=== PATIENT | male | born 1940 | race Hispanic/Latino ===

== ENCOUNTER 2017-03-07 06:34 | Day surgery (SDC) | payer MEDICARE, OTHER ==
[2017-03-07] MEDS ORDERED: HEPARIN/NS 5000 UNIT/500ML(CATH LAB) 1,000 ML IR ONE (08:21)
[2017-03-07] MEDS ORDERED: XYLOCAINE 2% INFILTRATI ONE (08:22)
[2017-03-07] MEDS ORDERED: HEPARIN/NS 5000 UNIT/500ML(CATH LAB) 500 ML IR ONE (08:56)
[2017-03-07] MEDS ORDERED: HALFPRIN EC PO ONE (09:00)
[2017-03-07] MEDS ORDERED: NACL 0.9% 500 ML 500 ML IV SCH (09:00)
[2017-03-07] MEDS: VERSED ONE ×2 (09:24→10:08)
[2017-03-07] MEDS: SUBLIMAZE ONE ×2 (09:24→10:21)
[2017-03-07] MEDS ORDERED: APRESOLINE ONE (09:52)
[2017-03-07] MEDS ORDERED: LASIX ONE (09:53)
[2017-03-07] MEDS ORDERED: NITROSTAT SL ONE (10:14)
--- NOTE | 2017-03-07 10:27 | Short Stay Summary ---
Short Stay Documentation Date of service: 03/07/17 - History H&P: obtained from office - Allergies and Medications Current Medications: Allergies baclofen Allergy (Verified 04/03/16 08:59) Unknown levofloxacin [From Levaquin] Adverse Reaction (Verified 10/20/15 06:47) Vomiting Home Medications Medication Instructions Recorded Confirmed Last Taken Type Alfuzosin HCl [Alfuzosin HCl ER] 10 mg PO DAILY 03/08/14 03/07/17 03/04/17 History Aspirin [Aspirin BABY CHEW TAB] 81 mg PO QDAY 03/08/14 03/07/17 03/07/17 History Furosemide 20 mg PO DAILY 03/08/14 03/07/17 03/04/17 History Losartan Potassium 50 mg PO BID 03/08/14 03/07/17 03/07/17 History Metoprolol Tartrate 50 mg PO TID 03/08/14 03/07/17 03/07/17 History Simvastatin [Zocor TAB] 40 mg PO QHS 03/08/14 03/07/17 03/04/17 History HYDROcodone/ACETAMINOPHEN 1 tab PO TID PRN 10/20/15 03/07/17 03/04/17 History [HYDROcodone-Acetaminophn 10-325] Metformin HCl 1,000 mg PO BID 10/20/15 03/07/17 03/04/17 History Oxazepam [Serax] 10 mg PO QHS PRN 10/20/15 03/07/17 03/04/17 History traZODone [Desyrel] 100 mg PO QHS PRN 10/20/15 03/07/17 03/07/17 History Apixaban [Eliquis] 5 mg PO BID 04/03/16 03/07/17 03/06/17 History Omeprazole 40 mg PO DAILY 04/03/16 03/07/17 03/04/17 History Allopurinol [Zyloprim] 300 mg PO QDAY 03/07/17 03/07/17 03/04/17 History HYDROcodone/APAP 10-325 [[place] 1 each PO Q8HR PRN 03/07/17 03/07/17 03/04/17 History 10/325] Isosorbide Dinitrate 30 mg PO BID 03/07/17 03/07/17 03/04/17 History Pregabalin [Lyrica] 75 mg PO BID 03/07/17 03/07/17 03/04/17 History Active Medications Sodium Chloride (Nacl 0.9% 500 Ml) 500 mls @ 50 mls/hr IV DIRECT KENYON Stop: 03/07/17 18:59 - Brief post op/procedure progress note Date of procedure: 03/07/17 Pre-op diagnosis: sob Post-op diagnosis: same Procedure: see report Anesthesia: local Estimated blood loss: none Pathology: none - Disposition Condition at discharge: Good Disposition: DC-01 TO HOME OR SELFCARE - Discharge Diagnoses (1) Pulmonary HTN Status: Chronic (2) SOB (shortness of breath) on exertion Status: Acute (3) Atrial flutter Status: Chronic Qualifiers: Atrial flutter type: atypical Qualified Code(s): I48.4 - Atypical atrial flutter (4) Aortic stenosis Status: Chronic Qualifiers: Cardiac valve disease etiology: C (5) CAD (coronary artery disease) Status: Chronic Qualifiers: Coronary Disease-Associated Artery/Lesion type: [place] artery [place] vs. transplanted heart: [place] heart Associated angina: without angina Qualified Code(s): I25.10 - Atherosclerotic heart disease of [place] coronary artery without angina pectoris (6) Dextrocardia Status: Chronic (7) Diabetes mellitus Status: Chronic Qualifiers: Diabetes mellitus type: type 1 Diabetes mellitus complication status: with circulatory complication Diabetes mellitus complication detail: with other circulatory complications Diabetic retinopathy severity: D Proliferative retinopathy type: P Diabetes mellitus macular edema: D Diabetes mellitus rodent exterminator insulin use: D Laterality: L Chronic kidney disease stage: C Qualified Code(s): E10.59 - Type 1 diabetes mellitus with other circulatory complications (8) HTN (hypertension) Status: Chronic Qualifiers: Hypertension type: essential hypertension (9) Morbid obesity Status: Chronic (10) Sleep apnea in adult Status: Chronic Short Stay Discharge Plan Activity: advance as tolerated Diet: low fat, low cholesterol, low salt Special Instructions: hold Metformin (for two days) Follow up with: SAMMIE CLINE MD [Primary Care Provider] - 7 Days
--- NOTE | 2017-03-07 10:58 | Cardiac Catherization Report ---
LEFT AND RIGHT HEART CATHETERIZATION CLINICAL INFORMATION: This is a 76-year-old gentleman with morbid obesity, pulmonary hypertension and paroxysmal atrial fib, known coronary artery disease with dextrocardia with PCI to LAD in 2007, had an episode of chest pain, relieved with nitroglycerin and with recurrent shortness of breath with minimal exertion, so left and right heart catheterization was performed of the right common femoral artery and right common femoral vein. Sterile technique, local anesthesia, 6-Indonesian sheath placed in common femoral artery and 8-Indonesian sheath placed in the common femoral vein. PROCEDURE FINDINGS: Right heart catheterization was done, which showed a wedge of 22 mmHg, PA was 61/13 with an average of 34 mmHg, PA was 64/24, RA was average of 18 mmHg. There was no step up or step down on saturations. PVR was 130, SVR was 1169, cardiac output was 7.73 and cardiac index at 3.51 and a left system engaged with JR4 catheter. Left main is large and patent. LAD proximal stent patent with mild luminal irregularities. Rest LAD is a medium caliber vessel is patent with diagonal 1 and diagonal 2 small to medium caliber vessel that is patent. Circumflex is a large caliber vessel that is patent. OM1 and OM2 nfbih-yb-jldela caliber vessels that are patent. RCA is a large dominant vessel is patent from proximally and distally with moderate tortuosity. PDA and PLV are medium caliber vessels that are patent, moderate tortuosity. LV gram done in ARABIC and BROWNLEE view shows normal LV function with elevated LVEDP of 30 mmHg. The patient has mild aortic stenosis with an LV of 214 and aortic is 201/87, about 15-20 mm [id number]-tu-rqzx gradient noted. 5-Indonesian catheters were taken over the guidewire. Both sheaths were taken and manual pressure held. No hematoma. No bleeding. SUMMARY: 1. Left main patent, LAD stent patent, circ patent, RCA patent with moderate tortuosity of vessels. 2. Mild aortic stenosis with mildly elevated left end-diastolic and the patient had right heart catheterization that revealed adnvoaeu-lp-[id number] pulmonary hypertension. PA was 64 mmHg, RV was 62 mmHg, RA was 18, wedge was 22 mmHg. Cardiac output 7.73, cardiac index 3.51. 3. Increase Lasix to 40 mg daily. The patient referred for pulmonary hypertension. [facility]# [id number] JENNA/LIGIA
[2017-03-07] MEDS ORDERED: PERCOCET 5/325 ONE (13:20)
[2017-03-07] MEDS ORDERED: NORCO 5/325 PO ONE (13:21)
[2017-03-07 15:09] VITALS: BP 180/80
== END 2017-03-07 15:40 | disposition home or self-care (01) ==
LOC: CATHLABREC 06:34
PROVIDERS: ATTEND Internal Medicine
DX: I70.0 Atherosclerosis of aorta (principal); I25.10 Atherosclerotic heart disease of native coronary artery without angina pectoris; I27.2 Other secondary pulmonary hypertension; I48.0 Paroxysmal atrial fibrillation; I48.4 Atypical atrial flutter; E11.9 Type 2 diabetes mellitus without complications; E78.5 Hyperlipidemia, unspecified; I11.0 Hypertensive heart disease with heart failure; I50.32 Chronic diastolic (congestive) heart failure; E66.01 Morbid (severe) obesity due to excess calories; Z68.33 Body mass index [BMI] 33.0-33.9, adult; Z88.8 Allergy status to other drugs, medicaments and biological substances; Z91.018 Allergy to other foods; Z79.84 Long term (current) use of oral hypoglycemic drugs; Z79.82 Long term (current) use of aspirin; Z79.899 Other long term (current) drug therapy; Z95.5 Presence of coronary angioplasty implant and graft; Z86.79 Personal history of other diseases of the circulatory system; Z98.890 Other specified postprocedural states; Z87.891 Personal history of nicotine dependence
CPT/HCPCS: 82962; 93005; 93010; 93460; C1769; C1894; J0360; J1644; J1940; J2250; J3010; J7040; Q9967

== ENCOUNTER 2019-07-16 06:13 | Day surgery (SDC) | payer MEDICARE ==
[2019-07-16] MEDS ORDERED: SODIUM CHLORIDE 0.9% 500 ML 500 ML ONE (06:38)
[2019-07-16] MEDS ORDERED: ASPIRIN EC 325 MG TAB PO ONE (06:38)
[2019-07-16] MEDS ORDERED: ASPIRIN EC 325 MG TAB PO NR (06:45)
[2019-07-16] MEDS ORDERED: SODIUM CHLORIDE 0.9% 500 ML 500 ML IV SCH (07:00)
[2019-07-16 07:14] LABS: Basophils % (Auto) 0.3 % (0.0-1.8); Eosinophils # (Auto) 0.3 K/mm3 (0.0-0.4); Eosinophils % (Auto) 4.2 % (0.0-4.3); Hematocrit 34.5 % (35.5-45.6); Hemoglobin 11.5 gm/dl (11.8-15.2); Lymphocytes # (Auto) 1.7 K/mm3 (1.2-5.4); Lymphocytes % (Auto) 28.2 % (13.4-35.0); Mean Corpuscular HGB Conc 33 % (32-34); Mean Corpuscular Volume 89 fl (84-94); Monocytes # (Auto) 0.5 K/mm3 (0.0-0.8); Monocytes % (Auto) 8.2 % (0.0-7.3); Platelet Count 202 K/mm3 (140-440); Red Blood Count 3.88 M/mm3 (3.65-5.03); Red Cell Distribution Width 15.6 % (13.2-15.2)
[2019-07-16 07:23] LABS: INR 0.98 (0.87-1.13)
[2019-07-16 07:24] LABS: Partial Thromboplastin Time 27.5 Sec. (24.2-36.6)
[2019-07-16 07:26] LABS: BUN/Creatinine Ratio 19; Blood Urea Nitrogen 15 mg/dL (9-20); Hemolysis Index 6
[2019-07-16] MEDS ORDERED: HEPARIN/NS 5000 UNIT/500ML 1,000 ML IR ONE (08:35)
[2019-07-16] MEDS ORDERED: LIDOCAINE (2%) 20 MG/1 ML VIAL 20 ML MDV INFILTRATI ONE (08:36)
[2019-07-16] MEDS: fentaNYL 100 MCG/2 ML INJ ONE ×3 (09:04→09:35)
[2019-07-16] MEDS: HEPARIN 10,000 UNITS/10 ML VIAL ONE ×2 (09:05→09:14)
[2019-07-16] MEDS: VERAPAMIL 5 MG/2 ML INJ ONE ×2 (09:05→09:14)
[2019-07-16] MEDS: MIDAZOLAM 2 MG/2 ML INJ ONE ×2 (09:05→09:10)
[2019-07-16] MEDS: NITROGLYCERIN SYRINGE 3 ML ONE ×2 (09:06→09:14)
[2019-07-16] MEDS ORDERED: hydrALAZINE 20 MG/1 ML INJ ONE (09:16)
[2019-07-16] MEDS ORDERED: HEPARIN/NS 5000 UNIT/500ML 500 ML IR ONE (09:57)
[2019-07-16] MEDS ORDERED: traMADol 50 MG TAB PO PRN (10:38)
--- NOTE | 2019-07-16 10:41 | Short Stay Summary ---
Short Stay Documentation Date of service: 07/16/19 - History H&P: obtained from office - Allergies and Medications Current Medications: Allergies baclofen Allergy (Verified 04/03/16 08:59) Unknown levofloxacin [From Levaquin] Adverse Reaction (Verified 10/20/15 06:47) Vomiting Home Medications Medication Instructions Recorded Confirmed Last Taken Type Alfuzosin HCl [Alfuzosin HCl ER] 10 mg PO DAILY 03/08/14 07/16/19 07/15/19 History Aspirin [Aspirin BABY CHEW TAB] 81 mg PO QDAY 03/08/14 07/16/19 07/15/19 History Furosemide 40 mg PO DAILY 03/08/14 07/16/19 2 Days Ago History ~07/14/19 Losartan Potassium 50 mg PO BID 03/08/14 07/16/19 07/16/19 05:30 History Metoprolol Tartrate 50 mg PO BID 03/08/14 07/16/19 07/16/19 05:30 History Simvastatin (Nf) [Zocor TAB] 40 mg PO QHS 03/08/14 07/16/19 07/15/19 History Metformin HCl 1,000 mg PO BID 10/20/15 07/16/19 2 Days Ago History ~07/14/19 traZODone [Desyrel] 100 mg PO QHS PRN 10/20/15 07/16/19 07/15/19 History Apixaban [Eliquis] 5 mg PO BID 04/03/16 07/16/19 4 Days Ago History ~07/12/19 Omeprazole 40 mg PO DAILY 04/03/16 07/16/19 07/15/19 History Allopurinol [Zyloprim] 300 mg PO QDAY 03/07/17 07/16/19 07/15/19 History HYDROcodone/APAP 10-325 [[place] 1 each PO Q8HR PRN 03/07/17 07/16/19 07/15/19 History 10-325 mg TAB] Isosorbide Dinitrate 30 mg PO BID 03/07/17 07/16/19 07/15/19 History Pregabalin 75 mg PO BID 03/07/17 07/16/19 03/04/17 History Nitroglycerin [Nitrostat] 0.4 mg SL Q5M PRN 07/16/19 07/16/19 Unknown History hydrALAZINE [Apresoline] 50 mg PO DAILY 07/16/19 07/16/19 07/16/19 05:30 History Active Medications Sodium Chloride (Nacl 0.9% 500 Ml) 500 mls @ 50 mls/hr IV DIRECT KENYON Stop: 07/16/19 16:59 Last Admin: 07/16/19 07:18 Dose: 50 mls/hr Documented by: - Brief post op/procedure progress note Date of procedure: 07/16/19 Pre-op diagnosis: as Post-op diagnosis: same Procedure: see report Anesthesia: local Estimated blood loss: none Pathology: none - Disposition Condition at discharge: Good Disposition: DC-01 TO HOME OR SELFCARE - Discharge Diagnoses (1) SOB (shortness of breath) on exertion Status: Chronic (2) Aortic stenosis Status: Chronic Qualifiers: Cardiac valve disease etiology: nonrheumatic (3) CAD (coronary artery disease) Status: Chronic Qualifiers: Coronary Disease-Associated Artery/Lesion type: [place] artery Associated angina: with stable angina (4) Dextrocardia Status: Chronic (5) Diabetes mellitus Status: Chronic Qualifiers: Diabetes mellitus type: type 2 Diabetes mellitus complication status: without complication (6) HTN (hypertension) Status: Chronic Qualifiers: Hypertension type: essential hypertension (7) History of PTCA Status: Chronic (8) Hyperlipemia, mixed Status: Chronic (9) Morbid obesity Status: Chronic Short Stay Discharge Plan Activity: advance as tolerated Diet: low cholesterol, low salt, diabetic Wound: keep clean and dry Special Instructions: hold Metformin (for 48 hours) Follow up with: SAMMIE CLINE MD [Primary Care Provider] - 7 Days
--- NOTE | 2019-07-16 10:51 | Cardiac Catherization Report ---
LEFT HEART CATHETERIZATION CLINICAL INFORMATION: This is a 78-year-old gentleman with dextrocardia diastolic dysfunction, known aortic stenosis, coronary artery disease, pulmonary hypertension, diabetes, presented with shortness of breath, on echocardiogram worsening aortic stenosis here for left heart catheterization. Procedure was done with moderate sedation started 9:10 a.m., finished at 10:10 a.m. Procedure was initially done via the right radial artery, sterile technique, local anesthesia, 6-Albanian radial sheath. Patient unable to finish procedure via the right radial approach Secondary to increased tortuosity, unable to get catheters appropriately after multiple tries with multiple catheters and wires, so proceeded with left heart catheterization from the right common femoral artery, sterile technique, local anesthesia, 6-Albanian groin sheath inserted. Left system and JL3.5 catheter. Left main is large and patent, bifurcates into large LAD, proximal stent is patent. Rest of LAD is patent. Diagonal 1 and diagonal 2 are vnfnj-wh-coivzi caliber and patent. Circumflex is a large caliber vessel that is patent. OM1, OM2 and OM3 are cqqmh-wi-nsfubi caliber vessel that is patent. RCA engaged with JR4, is a large dominant vessel, patent. PDA and PLV are small to medium caliber vessel, patent. LV gram, used a IntegralReach dual lumen catheter, was able to get into the valve and the following pressures. LV was 217 when LVEDP of 41 mmHg. Aortic is 162/73 mmHg. There is a mean gradient of 48 mmHg and a ghvi-xb-esfk of 55 mmHg with normal LV function. All catheters were removed over a guidewire, 6-Albanian groin sheath was discontinued. Manual pressure held. No hematoma, no bleeding. A 6-Albanian radial sheath was discontinued. Radial band applied. No hematoma, no bleeding. SUMMARY: Left main patent, LAD proximal stent patent. Rest of LAD patent, diagonal 1 and diagonal 2 patent, circumflex large patent. OM1, OM2 and OM3 are small to medium caliber vessel, patent. RCA large, dominant vessel, patent with normal LV function with severe aortic stenosis with a mean gradient of 48 mmHg. The patient will be referred for TAVR at [place]. Discussed this in detail with the patient and patient's family. JOB# [id number] JENNA/LIGIA RODRIGUEZ
[2019-07-16 15:16] VITALS: BP 164/69
== END 2019-07-16 15:10 | disposition home or self-care (01) ==
LOC: CATHLABREC 06:13
PROVIDERS: ATTEND Internal Medicine
DX: R06.02 Shortness of breath (principal); I35.0 Nonrheumatic aortic (valve) stenosis; I27.20 Pulmonary hypertension, unspecified; I12.0 Hypertensive chronic kidney disease with stage 5 chronic kidney disease or end stage renal disease; E11.22 Type 2 diabetes mellitus with diabetic chronic kidney disease; N18.6 End stage renal disease; I25.110 Atherosclerotic heart disease of native coronary artery with unstable angina pectoris; E66.01 Morbid (severe) obesity due to excess calories; I48.92 Unspecified atrial flutter; G47.33 Obstructive sleep apnea (adult) (pediatric); I42.9 Cardiomyopathy, unspecified; J44.9 Chronic obstructive pulmonary disease, unspecified; K21.9 Gastro-esophageal reflux disease without esophagitis; M19.90 Unspecified osteoarthritis, unspecified site; F41.9 Anxiety disorder, unspecified; Z98.890 Other specified postprocedural states; Z79.899 Other long term (current) drug therapy; Z79.82 Long term (current) use of aspirin; Z79.84 Long term (current) use of oral hypoglycemic drugs; Z87.891 Personal history of nicotine dependence; Z98.61 Coronary angioplasty status; Z68.36 Body mass index [BMI] 36.0-36.9, adult; Z87.442 Personal history of urinary calculi; Z99.2 Dependence on renal dialysis; Z86.2 Personal history of diseases of the blood and blood-forming organs and certain disorders involving the immune mechanism; Z88.8 Allergy status to other drugs, medicaments and biological substances
CPT/HCPCS: 36415; 80048; 85025; 85610; 85730; 93005; 93010; 93458; C1751; C1769; C1894; J0360; J1644; J2250; J3010; J7040; Q9967